=== PATIENT | male | born 1980 | race African-American/Black ===

== ENCOUNTER 2017-10-09 20:43 | Emergency (ER) | payer MEDICAID ==
[~2017-10-09] VITALS: Ht 170.2 cm; Wt 107.5 kg
[~2017-10-09 20:43] MED LIST: BACTRIM DS TAB1 EAC1 ORAL; CEPHALEXIN500 MG ORAL; CEPHALEXIN500 MG PO; KEFLEX500 MG ORAL; NKM
[2017-10-09 21:00] VITALS: BP 146/91
[2017-10-09] MEDS ORDERED: PERMETHRIN60 GM TOPIC (21:12)
[2017-10-09] MEDS ORDERED: IBUPROFEN600 MG ORAL (21:12)
--- NOTE | 2017-10-09 21:13 | Emergency Room Report ---
History of Present Illness General Chief Complaint: General Complaint Source: Patient Present Illness HPI Is a 37-year-old male with no significant past history he presents with to chief complaint. This one is his feet are swollen. Onset for last week. No trauma. No fever or chills. His been on his feet more. Pain is mild. Second complaint is lice. Notice it today was someone was doing his hair. He said he washed it and noticed lice on his towel. Itching. Allergies: Coded Allergies: No Known Allergies (Unverified , 08/11/12) Patient History Past Medical History: see triage record, old chart reviewed Past Surgical History: none Pertinent Family History: none Social History: Denies: smoking Immunizations: other Reviewed Nursing Documentation: PMH: Agreed, PSxH: Agreed Nursing Documentation-PMH Hx Hypertension: Yes Review of Systems Eye: Denies: eye pain, blurred vision ENT: Denies: ear pain, nose congestion, throat swelling Respiratory: Denies: cough, shortness of breath Cardiovascular: Denies: chest pain, palpitations Gastrointestinal: Denies: abdominal pain, diarrhea, nausea, vomiting Musculoskeletal: Denies: back pain, joint pain Skin: Denies: rash Neurological: Denies: headache, numbness Endocrine: Denies: increased thirst, increased urine Hematologic/Lymphatic: Denies: easy bruising All Other Systems: negative except mentioned in HPI Physical Exam Vital Signs Date Time Temp Pulse Resp B/P (MAP) Pulse Ox O2 Delivery O2 Flow Rate FiO2 10/09/17 20:52 98.6 109 16 146/91 96 Room Air vitals with tachycardia Sp02 EP Interpretation: reviewed, normal General Appearance: well appearing, no apparent distress, alert Head: normocephalic, atraumatic, other - Initially, I did not see any lice or nits. Patient put wet towel, I was able to see one. Eyes: bilateral eye PERRL, bilateral eye EOMI ENT: hearing grossly normal, normal pharynx Neck: full range of motion, supple, no meningismus Respiratory: chest non-tender, lungs clear, normal breath sounds Cardiovascular #1: regular rate, rhythm, no murmur Gastrointestinal: normal bowel sounds, non tender, no mass, no organomegaly, no bruit, non-distended Musculoskeletal: back normal, gait/station normal, normal range of motion, other - No obvious edema to his feet. He Flat footed Psychiatric: mood/affect normal Skin: warm/dry Medical Decision Making Diagnostic Impression: Primary Impression: Head lice Additional Impression: Arthralgia of both feet ER Course Patient with lights. We'll prescribe medication. No evidence of infection. We 'll discharge him. Last Vital Signs Date Time Temp Pulse Resp B/P (MAP) Pulse Ox O2 Delivery O2 Flow Rate FiO2 10/09/17 20:52 98.6 109 16 146/91 96 Room Air Status: unchanged Disposition: HOME, SELF-CARE Condition: Stable Scripts Ibuprofen* (MOTRIN*) 600 Mg Tablet 600 MG ORAL THREE TIMES A DAY, #30 TAB 0 Refills Prov: MAXIMO SPENCER M.D. 10/09/17 Permethrin* (ELIMITE*) 60 Gm Cream..g. 1 APPLIC TOPIC ONCE, #120 GM 0 Refills Apply cream from head to toe; leave on for 8-14 hours before washing off with water; may reapply in 1 week if live mites appear. Prov: MAXIMO SPENCER M.D. 10/09/17 Ibuprofen* (MOTRIN*) 600 Mg Tablet 600 MG ORAL THREE TIMES A DAY, #30 TAB 0 Refills Prov: MAXIMO SPENCER M.D. 10/09/17 Additional Instructions: Followup with your DrVance in a week. Treat your hair once and then a week later again. Return if symptom worsen. MAXIMO SPENCER M.D. Oct 09, 2017 21:13
[2017-10-09 21:45] VITALS: BP 146/91
== END 2017-10-09 21:45 | disposition home or self-care (01) ==
LOC: EMR 21:44
DX: B85.0 Pediculosis due to Pediculus humanus capitis (principal); M25.572 Pain in left ankle and joints of left foot; M25.571 Pain in right ankle and joints of right foot; M79.89 Other specified soft tissue disorders; I10 Essential (primary) hypertension
CPT/HCPCS: 99283

== ENCOUNTER 2018-01-14 12:30 | Emergency (ER) | payer MEDICAID ==
[~2018-01-14] VITALS: Ht 170.2 cm; Wt 86.2 kg
[~2018-01-14 12:30] MED LIST changes: +IBUPROFEN600 MG ORAL; +PERMETHRIN60 GM TOPIC
[2018-01-14 13:02] VITALS: BP 133/76
[2018-01-14 13:03] VITALS: BP 133/76
[2018-01-14] MEDS ORDERED: PERMETHRIN60 GM TOPIC (13:07)
[2018-01-14] MEDS ORDERED: DEBROX15 M1 BOTH EARS (13:07)
--- NOTE | 2018-01-14 13:09 | Emergency Room Report ---
History of Present Illness General Chief Complaint: General Complaint Present Illness HPI 37 yo male patient presents to ER complaining of lice for 1 week. Reports hx of lice. Reports previously only treated hair once with medication. Reports itching of scalp. Denies pain, erythema, bald patches. Reports concern lice may have crawled into ear. Denies ear pain or hearing loss. Denies fever, chest pain, SOB, abdominal pain. Allergies: Coded Allergies: No Known Allergies (Unverified , 08/11/12) Patient History Past Medical History: see triage record Reviewed Nursing Documentation: PMH: Agreed; PSxH: Agreed Nursing Documentation-PMH Hx Hypertension: Yes Review of Systems All Other Systems: negative except mentioned in HPI Physical Exam Vital Signs Date Time Temp Pulse Resp B/P (MAP) Pulse Ox O2 Delivery O2 Flow Rate FiO2 01/14/18 12:44 97.7 114 20 133/76 99 Room Air 97.7 Sp02 EP Interpretation: reviewed, normal General Appearance: well appearing, no apparent distress, alert, GCS 15, non- toxic Head: normocephalic, atraumatic, other - nits present in hair, no lice seen Eyes: bilateral eye normal inspection, bilateral eye PERRL ENT: hearing grossly normal, normal pharynx, no angioedema, normal voice, uvula midline, moist mucus membranes, other - excessive cerumen bilaterally, no pain with ear pulling, no erythema in canal Neck: full range of motion Respiratory: lungs clear, normal breath sounds, no rhonchi, no respiratory distress, no accessory muscle use, no wheezing, speaking full sentences Genitourinary: no CVA tenderness Musculoskeletal: back normal, digits/nails normal, gait/station normal, normal range of motion, non-tender Neurologic: alert, oriented x3, responsive, motor strength/tone normal, sensory intact Psychiatric: mood/affect normal Skin: no rash Lymphatic: no adenopathy Medical Decision Making PA Attestation Dr. Whitmore is my supervising Physician whom patient management has been discussed with. Diagnostic Impression: Primary Impression: Lice Additional Impression: Cerumen impaction ER Course Pt. presents to the ED c/o lice. Ddx considered but are not limited to lice, scabies, insect. Vital signs: are WNL, pt. is afebrile. Pulse mildly elevated, will recheck. ORDERS: none required at this time, the diagnosis is clinical ER COURSE: Patient has likely nits in hair. Will treat with Permethrin.Treat today and repeat in 1 week. Clean all possessions, clothes, and bedding. Treat close contacts. No lice seen in ear, excessive cerumen, will provide with Debrox. Followup with PCP. Vitals stable prior to discharge. DISCHARGE: Rx provided for Debrox Rx provided for Permethrin At this time pt is stable for d/c to home. Patient is resting comfortably, in no acute distress, nontoxic appearing, talking without difficulty. Patient to take medications as instructed Will provide with patient care instructions and any necessary prescriptions. Care plan and follow-up instructions provided. Patient instructed to follow-up with primary care provider in 3 - 5 days. Patient questions asked and answered. Patient reports understanding and agreement to treatment plan. ER precautions given. Patient instructed to return to ER immediately for any new or worsening of symptoms including but not limited to increasing SOB, persistent fever. Last Vital Signs Date Time Temp Pulse Resp B/P (MAP) Pulse Ox O2 Delivery O2 Flow Rate FiO2 01/14/18 13:02 97.7 70 20 133/76 99 Room Air 97.7 Disposition: HOME, SELF-CARE Condition: Stable Scripts Permethrin* (ELIMITE*) 60 Gm Cream..g. 1 APPLIC TOPIC ONCE, #60 GM 0 Refills Apply cream from head to toe; leave on for 8-14 hours before washing off with water; may reapply in 1 week if live mites appear. Prov: Rd Willard 01/14/18 Carbamide Peroxide (DEBROX) 15 Ml Drops 5 DROP BOTH EARS TWICE A DAY for 4 Days, ML 0 Refills Prov: Rd Willard 01/14/18 Additional Instructions: Followup with primary care provider in 3 -5 days. Take medications as directed. Patient questions asked and answered. ER precautions given, patient instructed to return to ER immediately for any new or worsening of symptoms. Apply Permethrin cream once today and repeat in 1 week. Clean and wash all clothing and bedding to prevent reinfection. Hair conditioners should not be used prior to application; these products may result in reduced efficacy. Rinsing of topical pediculicides should be performed over a sink rather than in a shower or bath to limit skin exposure. Rinsing with warm water is preferred over hot water. Rd Willard Jan 14, 2018 13:09
== END 2018-01-14 13:30 | disposition home or self-care (01) ==
LOC: EMR 13:10
DX: B85.0 Pediculosis due to Pediculus humanus capitis (principal); H61.23 Impacted cerumen, bilateral; I10 Essential (primary) hypertension
CPT/HCPCS: 99284

== ENCOUNTER 2018-01-20 12:24 | Emergency (ER) | payer MEDICAID ==
[~2018-01-20] VITALS: Ht 170.2 cm; Wt 88.5 kg
[~2018-01-20 12:24] MED LIST changes: +DEBROX15 M1 BOTH EARS
[2018-01-20] MEDS ORDERED: NKM (12:36)
[2018-01-20 12:38] VITALS: BP 146/85
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
[2018-01-20] MEDS ORDERED: LORazepam 1mg tab ORAL ONE (13:45)
--- NOTE | 2018-01-20 14:01 | Diagnostic Imaging Report ---
Indication: Pain Technique: XRAY Ankle 2v R Comparison: No prior right ankle radiographs for comparison. Findings: There is no acute fracture or dislocation. Ankle mortise is intact on these nonstress views. There is a well circumscribed ossific density projecting adjacent to the tip of the medial malleolus which may be sequela of remote trauma or possibly represent a accessory ossicle. Likely small osteochondroma of the distal tibial shaft. No radiopaque foreign body is seen. No ankle joint effusion. Question pes planus. Otherwise, visualized hindfoot grossly unremarkable. IMPRESSION: No definite evidence of acute fracture or dislocation. Additional findings as above.
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
[2018-01-20] MEDS ORDERED: NAPROXEN375 MG ORAL (14:23)
[2018-01-20 15:01] VITALS: BP 140/79
== END 2018-01-20 15:03 | disposition home or self-care (01) ==
LOC: EMR 14:16
DX: M25.572 Pain in left ankle and joints of left foot (principal); M25.571 Pain in right ankle and joints of right foot; I10 Essential (primary) hypertension
CPT/HCPCS: 93005; 99283

== ENCOUNTER 2018-02-11 11:25 | Emergency (ER) | payer MEDICAID ==
[~2018-02-11] VITALS: Ht 175.3 cm; Wt 81.6 kg
[~2018-02-11 11:25] MED LIST changes: +NAPROXEN375 MG ORAL
[2018-02-11 12:10] LABS: BASOPHILS % (AUTO) 1.4 % (0.0-2.0); EOSINOPHILS % (AUTO) 1.1 % (0.0-3.0); HEMATOCRIT 45.9 % (42.0-52.0); HEMOGLOBIN 15.4 G/DL (14.2-18.0); LYMPHOCYTES % (AUTO) 22.5 % (20.0-45.0); MEAN CORPUSCULAR VOLUME 89 FL (80-99); MONOCYTES % (AUTO) 8.5 % (1.0-10.0); NEUTROPHILS % (AUTO) 66.5 % (45.0-75.0); PLATELET COUNT 243 K/UL (150-450); RED BLOOD COUNT 5.14 M/UL (4.70-6.10); RED CELL DISTRIBUTION WIDTH 12.5 % (11.6-14.8); WHITE BLOOD COUNT 6.8 K/UL (4.8-10.8)
[2018-02-11 12:28] LABS: ANION GAP 12 mmol/L (5-15); BLOOD UREA NITROGEN 16 mg/dL (7-18); CALCIUM 9.2 MG/DL (8.5-10.1); CARBON DIOXIDE 23 MMOL/L (21-32); CHLORIDE 102 MMOL/L (98-107); CREATININE 1.2 MG/DL (0.55-1.30); POTASSIUM 4.7 MMOL/L (3.5-5.1); SODIUM 137 MMOL/L (136-145)
[2018-02-11] MEDS ORDERED: Naloxone 1mg/ml 2ml IVP ONE (12:30)
[2018-02-11 12:34] LABS: ALANINE AMINOTRANSFERASE 38 U/L (12-78); ALBUMIN/GLOBULIN RATIO 0.9 (1.0-2.7); ALKALINE PHOSPHATASE 86 U/L (46-116); ASPARTATE AMINO TRANSFERASE 54 U/L (15-37); BILIRUBIN,TOTAL 0.9 MG/DL (0.2-1.0)
[2018-02-11] MEDS ORDERED: Haloperidol 5mg/ml Inj IM ONE ×2 (13:45→20:15)
[2018-02-11] MEDS ORDERED: LORazepam Inj 2mg/ml 1ml IM ONE ×2 (13:45→23:15)
[2018-02-11 14:00] VITALS: BP 144/90
--- NOTE | 2018-02-11 14:48 | Emergency Room Report ---
History of Present Illness General Chief Complaint: Overdose Source: EMS (Derrell Hernandez MD) Present Illness HPI 37-year-old male presents ED for evaluation. Patient brought in by EMS. Patient allegedly overdosed on heroin. Patient is well-known to EMS. Patient had pinpoint pupils with minimal response. Given Narcan multiple doses and is now more awake. However is very lethargic. Patient is unable to provide any additional history at this time. No evidence of head trauma or injury. No other aggravating relieving factors. No other associated symptoms (Derrell Hernandez MD) Allergies: Coded Allergies: No Known Allergies (Unverified , 08/11/12) Patient History Past Medical History: none Past Surgical History: none Pertinent Family History: none Social History: Reports: drug use; Denies: smoking, alcohol use Immunizations: UTD Reviewed Nursing Documentation: PMH: Agreed; PSxH: Agreed (Derrell Hernandez MD) Nursing Documentation-PMH Hx Hypertension: Yes (Derrell Hernandez MD) Review of Systems All Other Systems: limited (Derrell Hernandez MD) Physical Exam Vital Signs Date Time Temp Pulse Resp B/P (MAP) Pulse Ox O2 Delivery O2 Flow Rate FiO2 02/11/18 11:22 97.5 110 12 144/90 98 Room Air 97.5 Sp02 EP Interpretation: reviewed, normal General Appearance: no apparent distress, lethargic Head: normocephalic, atraumatic Eyes: bilateral eye normal inspection, bilateral eye PERRL ENT: hearing grossly normal, normal pharynx, no angioedema, normal voice Neck: full range of motion, supple/symm/no masses Respiratory: chest non-tender, lungs clear, normal breath sounds, speaking full sentences Cardiovascular #1: regular rate, rhythm, no edema Cardiovascular #2: 2+ carotid (R), 2+ carotid (L), 2+ radial (R), 2+ radial (L) , 2+ dorsalis pedis (R), 2+ dorsalis pedis (L) Gastrointestinal: normal bowel sounds, non tender, soft, non-distended, no guarding, no rebound Rectal: deferred Genitourinary: normal inspection, no CVA tenderness Musculoskeletal: back normal, gait/station normal, normal range of motion, non- tender Neurologic: other - lethargic Psychiatric: other - lethargic Reflexes: 3+ bicep (R), 3+ bicep (L), 3+ tricep (R), 3+ tricep (L), 3+ knee (R) , 3+ knee (L) Skin: normal color, no rash, warm/dry, well hydrated Lymphatic: no adenopathy (Derrell Hernandez MD) Medical Decision Making Diagnostic Impression: Primary Impression: Drug overdose Qualified Codes: T50.901A - Poisoning by unspecified drugs, medicaments and biological substances, accidental (unintentional), initial encounter Additional Impression: Amphetamine abuse ER Course Hospital Course 37-year-old male presents to ED with altered mental status. allegedly used heroin at home Clinical course Patient initially seen and evaluated by myself yesterday. Please see initial note for full history and physical Patient required sedation for agitation. I ordered CT head. Labs reviewed-electrolytes okay, no leukocytosis, hemoglobin/hematocrit stable, Utox + amphetamines CT brain shows no acute pathology I signed out to oncoming physician that patient could likely be discharged once awake Patient remains in ED, lethargic. Patient answers questions very slowly. At this point I believe patient should be admitted Because of insurance patient will be transferred i. I feel this is a highly complex case requiring extensive working including EKG/Rhythm strip, Xray/CT/US, Blood/urine lab work, repeat exams while in ED, and administration of strong opiates/narcotics for pain control, admission to hospital or close patient follow up. Diagnosis - drug overdose, amphetamine abuse transferred in serious condition Labs Test 02/11/18 11:45 White Blood Count 6.8 K/UL (4.8-10.8) Red Blood Count 5.14 M/UL (4.70-6.10) Hemoglobin 15.4 G/DL (14.2-18.0) Hematocrit 45.9 % (42.0-52.0) Mean Corpuscular Volume 89 FL (80-99) Mean Corpuscular Hemoglobin 29.9 PG (27.0-31.0) Mean Corpuscular Hemoglobin Concent 33.5 G/DL (32.0-36.0) Red Cell Distribution Width 12.5 % (11.6-14.8) Platelet Count 243 K/UL (150-450) Mean Platelet Volume 6.3 FL (6.5-10.1) Neutrophils (%) (Auto) 66.5 % (45.0-75.0) Lymphocytes (%) (Auto) 22.5 % (20.0-45.0) Monocytes (%) (Auto) 8.5 % (1.0-10.0) Eosinophils (%) (Auto) 1.1 % (0.0-3.0) Basophils (%) (Auto) 1.4 % (0.0-2.0) Sodium Level 137 MMOL/L (136-145) Potassium Level 4.7 MMOL/L (3.5-5.1) Chloride Level 102 MMOL/L (98-107) Carbon Dioxide Level 23 MMOL/L (21-32) Anion Gap 12 mmol/L (5-15) Blood Urea Nitrogen 16 mg/dL (7-18) Creatinine 1.2 MG/DL (0.55-1.30) Estimat Glomerular Filtration Rate > 60 mL/min (>60) Glucose Level 109 MG/DL (74-106) Calcium Level 9.2 MG/DL (8.5-10.1) Total Bilirubin 0.9 MG/DL (0.2-1.0) Aspartate Amino Transf (AST/SGOT) 54 U/L (15-37) Alanine Aminotransferase (ALT/SGPT) 38 U/L (12-78) Alkaline Phosphatase 86 U/L (46-116) Total Protein 8.4 G/DL (6.4-8.2) Albumin 4.0 G/DL (3.4-5.0) Globulin 4.4 g/dL Albumin/Globulin Ratio 0.9 (1.0-2.7) Salicylates Level 0.6 ug/mL (2.8-20) Urine Opiates Screen Negative (NEGATIVE) Acetaminophen Level < 2 MCG/ML (10-30) Urine Barbiturates Screen Negative (NEGATIVE) Phencyclidine (PCP) Screen Negative (NEGATIVE) Urine Amphetamines Screen Positive (NEGATIVE) Urine Benzodiazepines Screen Negative (NEGATIVE) Urine Cocaine Screen Negative (NEGATIVE) Urine Marijuana (THC) Screen Negative (NEGATIVE) Serum Alcohol < 3 mg/dL (Derrell Hernandez MD) ER Course This patient was signed out to me. The patient had presented with drug intoxication. At the time of turnover, he was awaiting laboratory workup and a head CT as a precaution. He complained of fatigue. His urine drug screen was positive for amphetamines. I suspect this patient was up all night and that is why he is fatigued. Laboratory workup was unremarkable for any findings concerning for anemia, electrolyte abnormality or any emergency medical condition. He was given Haldol and Ativan here in the emergency department for agitation. He was allowed to sleep and sober up. He was then discharged when he is clinically sober. He was able to ambulate and was given a local resources for drug rehabilitation. Laboratory Tests Test 02/11/18 11:45 White Blood Count 6.8 K/UL (4.8-10.8) Red Blood Count 5.14 M/UL (4.70-6.10) Hemoglobin 15.4 G/DL (14.2-18.0) Hematocrit 45.9 % (42.0-52.0) Mean Corpuscular Volume 89 FL (80-99) Mean Corpuscular Hemoglobin 29.9 PG (27.0-31.0) Mean Corpuscular Hemoglobin Concent 33.5 G/DL (32.0-36.0) Red Cell Distribution Width 12.5 % (11.6-14.8) Platelet Count 243 K/UL (150-450) Mean Platelet Volume 6.3 FL (6.5-10.1) L Neutrophils (%) (Auto) 66.5 % (45.0-75.0) Lymphocytes (%) (Auto) 22.5 % (20.0-45.0) Monocytes (%) (Auto) 8.5 % (1.0-10.0) Eosinophils (%) (Auto) 1.1 % (0.0-3.0) Basophils (%) (Auto) 1.4 % (0.0-2.0) Sodium Level 137 MMOL/L (136-145) Potassium Level 4.7 MMOL/L (3.5-5.1) Chloride Level 102 MMOL/L (98-107) Carbon Dioxide Level 23 MMOL/L (21-32) Anion Gap 12 mmol/L (5-15) Blood Urea Nitrogen 16 mg/dL (7-18) Creatinine 1.2 MG/DL (0.55-1.30) Estimate Glomerular Filtration Rate > 60 mL/min (>60) Glucose Level 109 MG/DL (74-106) H Calcium Level 9.2 MG/DL (8.5-10.1) Total Bilirubin 0.9 MG/DL (0.2-1.0) Aspartate Amino Transferase (AST) 54 U/L (15-37) H Alanine Aminotransferase (ALT) 38 U/L (12-78) Alkaline Phosphatase 86 U/L (46-116) Total Protein 8.4 G/DL (6.4-8.2) H Albumin 4.0 G/DL (3.4-5.0) Globulin 4.4 g/dL Albumin/Globulin Ratio 0.9 (1.0-2.7) L Salicylates Level 0.6 ug/mL (2.8-20) L Urine Opiates Screen Negative (NEGATIVE) Acetaminophen Level < 2 MCG/ML (10-30) L Urine Barbiturates Screen Negative (NEGATIVE) Phencyclidine (PCP) Screen Negative (NEGATIVE) Urine Amphetamines Screen Positive (NEGATIVE) H Urine Benzodiazepines Screen Negative (NEGATIVE) Urine Cocaine Screen Negative (NEGATIVE) Urine Marijuana (THC) Screen Negative (NEGATIVE) Serum Alcohol < 3 mg/dL (CONTRERAS STAFFORD D.O.) ER Course Patient was endorsed to me. The patient was pending CT of the head. Patient was noted to be somewhat agitated initially and subsequently became more sedated after receiving Ativan. CT the head was performed with large amount of motion artifact. The patient is currently pending reassessment after the medications wear off.The patient was endorsed to Dr. Hough the pending reevaluation. (Kota Hutchinson) ER Course Please see above notes. Patient sleeping. More arousable but still somnolent. Continued observation. (Jimmie Hough M.D.) CT/MRI/US Diagnostic Results CT/MRI/US Diagnostic Results : Imaging Test Ordered: CT Head Impression no acute process (Derrell Hernandez MD) CT/MRI/US Diagnostic Results : Imaging Test Ordered: CT head Impression No acute findings. See official report (CONTRERAS STAFFORD D.O.) Last Vital Signs Date Time Temp Pulse Resp B/P (MAP) Pulse Ox O2 Delivery O2 Flow Rate FiO2 02/11/18 11:22 97.5 110 12 144/90 98 Room Air 97.5 Status: improved (Derrell Hernandez MD) Disposition: XFER SHT-TRM HOSP Condition: Serious Referrals: NON PHYSICIAN (PCP) Derrell Hernandez MD Feb 11, 2018 14:48 CONTRERAS STAFFORD D.O. Feb 11, 2018 15:31 Kota Hutchinson Feb 12, 2018 06:34 Jimmie Hough M.D. Feb 12, 2018 13:37
[2018-02-11 16:52] VITALS: BP 142/87
[2018-02-11 19:30] VITALS: BP 135/81
[2018-02-11 22:00] VITALS: BP 132/84
[2018-02-12] VITALS (10 sets, daily range): BP systolic 101–136; BP diastolic 61–85
--- NOTE | 2018-02-12 10:09 | Diagnostic Imaging Report ---
Indication: Altered mental status Technique: Contiguous 5 mm thick transaxial imaging of the head obtained in a Siemens Sensation [address] scanner. Soft tissue and bone windows generated. Automatic Exposure Control was utilized. Total Dose length Product (DLP): 2420.[address] Dose Index Volume (CTDIvol): 70.38,70.38 mGy Comparison: none Findings: Study is significantly degraded, almost nondiagnostic due to motion. Portions of the brain are not visualized adequately and not adequately evaluated. That said the visualized part of the brain seen shows no obvious mass effect or acute hemorrhage or edema. IMPRESSION: Severely limited study due to motion. Recommend repeating the exam. [facility] has communicated the preliminary results to the Emergency Department. Their findings are largely concordant with this report. The CT scanner at [facility] is accredited by the [employer] and the scans are performed using dose optimization techniques as appropriate to a performed exam including Automatic Exposure control.
== END 2018-02-12 20:10 | disposition short-term general hospital (02) ==
LOC: EDBD 11:25 → EMR 12:17
DX: T40.1X1A Poisoning by heroin, accidental (unintentional), initial encounter (principal); Y92.9 Unspecified place or not applicable; F15.10 Other stimulant abuse, uncomplicated; I10 Essential (primary) hypertension; R41.82 Altered mental status, unspecified
CPT/HCPCS: 36415; 36600; 70450; 80053; 80307; 80329; 82803; 85025; 96361; 96372; 96374; 96375; 99285; J1630; J2310

== ENCOUNTER 2018-02-26 23:08 | Emergency (ER) | payer MEDICAID ==
[~2018-02-26] VITALS: Ht 170.2 cm; Wt 98.0 kg
[2018-02-26 23:30] VITALS: BP 124/76
[2018-02-27] MEDS ORDERED: AMOXICILLIN500 MG ORAL (00:51)
[2018-02-27] MEDS ORDERED: PSEUDOEPHEDRINE60 MG PO (00:51)
--- NOTE | 2018-02-27 00:51 | Emergency Room Report ---
History of Present Illness General Chief Complaint: Earache Source: Patient Present Illness HPI Patient with no significant past medical history. He presents chief complaint of bilateral ear pain. Right greater than left. His been ongoing for over a month. Now he can't hear especially in the right side. No nausea no vomiting. No trauma. Allergies: Coded Allergies: No Known Allergies (Unverified , 08/11/12) Patient History Past Medical History: see triage record, old chart reviewed Past Surgical History: none Pertinent Family History: none Social History: Denies: smoking Immunizations: other Reviewed Nursing Documentation: PMH: Agreed; PSxH: Agreed Nursing Documentation-PMH Hx Hypertension: Yes Review of Systems Eye: Denies: eye pain, blurred vision ENT: Reports: ear pain; Denies: nose congestion, throat swelling Respiratory: Denies: cough, shortness of breath Cardiovascular: Denies: chest pain, palpitations Gastrointestinal: Denies: abdominal pain, diarrhea, nausea, vomiting Musculoskeletal: Denies: back pain, joint pain Skin: Denies: rash Neurological: Denies: headache, numbness Endocrine: Denies: increased thirst, increased urine Hematologic/Lymphatic: Denies: easy bruising All Other Systems: negative except mentioned in HPI Physical Exam Vital Signs Date Time Temp Pulse Resp B/P (MAP) Pulse Ox O2 Delivery O2 Flow Rate FiO2 02/26/18 23:12 97.7 100 16 124/76 96 Room Air 97.7 vitals normal Sp02 EP Interpretation: reviewed, normal General Appearance: well appearing, no apparent distress, alert Head: normocephalic, atraumatic Eyes: bilateral eye PERRL, bilateral eye EOMI ENT: hearing grossly normal, normal pharynx, other - Bilateral canal obstructed with cerumen. After disimpaction, left TM is normal. Right TM show air-fluid levels and erythema. Neck: full range of motion, supple, no meningismus Respiratory: chest non-tender, lungs clear, normal breath sounds Cardiovascular #1: regular rate, rhythm, no murmur Gastrointestinal: normal bowel sounds, non tender, no mass, no organomegaly, no bruit, non-distended Musculoskeletal: back normal, gait/station normal, normal range of motion Psychiatric: mood/affect normal Skin: warm/dry Procedures Additional Procedure Procedure Narrative Procedure: Cerumen disimpaction Indication: Cerumen impaction Description: I irrigated both ear canal and using an alligator forceps able removed the cerumen without any difficulty. Patient tolerated procedure without a problem. No complication. Medical Decision Making Diagnostic Impression: Primary Impression: Impacted cerumen of both ears Additional Impression: Right otitis media with effusion ER Course Patient with cerumen impaction. No evidence of perforation. Also has some otitis media. We'll discharge home. Last Vital Signs Date Time Temp Pulse Resp B/P (MAP) Pulse Ox O2 Delivery O2 Flow Rate FiO2 02/26/18 23:30 97.7 100 16 124/76 96 Room Air 97.7 Status: improved Disposition: HOME, SELF-CARE Condition: Stable Scripts Pseudoephedrine Hcl* (SUDAFED*) 60 Mg Tablet 60 MG PO Q6H, #20 TAB Prov: MAXIMO SPENCER M.D. 02/27/18 Amoxicillin* (AMOXIL*) 500 Mg Capsule 500 MG ORAL THREE TIMES A DAY, #21 CAP Prov: MAXIMO SPENCER M.D. 02/27/18 Referrals: NON PHYSICIAN (PCP) Patient Instructions: Otitis Media, Adult, [id number] Additional Instructions: Follow-up with your doctor in 7 days. Return if worse. MAXIMO SPENCER M.D. February 27, 2018 00:51
[2018-02-27 00:56] VITALS: BP 124/76
== END 2018-02-27 00:56 | disposition home or self-care (01) ==
LOC: EMR 23:45
DX: H61.23 Impacted cerumen, bilateral (principal); H65.91 Unspecified nonsuppurative otitis media, right ear
CPT/HCPCS: 69210; 99284

== ENCOUNTER 2018-09-06 17:50 | Emergency (ER) | payer MEDICAID ==
[~2018-09-06] VITALS: Ht 175.3 cm; Wt 98.9 kg
[~2018-09-06 17:50] MED LIST changes: +AMOXICILLIN500 MG ORAL; +PSEUDOEPHEDRINE60 MG PO
[2018-09-06] MEDS ORDERED: NKM (18:00)
--- NOTE | 2018-09-06 18:03 | Emergency Room Report ---
History of Present Illness General Chief Complaint: Lower Back Pain or Injury Source: Patient, Medical Record Present Illness HPI 38-year-old male presents to the emergency department complaining of low back pain that radiates across his low back times one week. Patient reports worsening of his symptoms. Patient denies trauma or fall. Patient denies hematuria, urinary urgency or frequency. Patient denies fevers or chills. He reports some intermittent left foot pain as well. Patient again denies trauma or fall. Patient states pain is exacerbated upon attempts to bend forward. Denies history of recent spinal procedures or neoplastic disease. Patient does report hx of illicit drug use however states he has not had any recently. pt. reports that he was seen by his pcp recently and had some blood in the urine then and was dx'd with UTI and rx'd Sulfa abx. pt. states he did not fill his rx nor taken any abx for his symptoms. Denies numbness tingling or loss of sensation or gross motor movements of the extremities, incontinence of bowel or bladder. Denies CP, Palpitations, LOC, AMS, dizziness, Changes in Vision, weakness or a sudden severe headache. Allergies: Coded Allergies: No Known Allergies (Unverified , 09/06/18) Patient History Past Medical History: see triage record Past Surgical History: none Pertinent Family History: none Social History: Reports: drug use - hx of heroin and meth use. Immunizations: UTD Reviewed Nursing Documentation: PMH: Agreed; PSxH: Agreed Nursing Documentation-PMH Past Medical History: No History, Except For Hx Hypertension: Yes Review of Systems All Other Systems: negative except mentioned in HPI Physical Exam Vital Signs Date Time Temp Pulse Resp B/P (MAP) Pulse Ox O2 Delivery O2 Flow Rate FiO2 09/06/18 17:54 98.8 122 16 148/90 96 Room Air Sp02 EP Interpretation: reviewed, normal General Appearance: no apparent distress, alert, GCS 15, non-toxic Head: normocephalic, atraumatic Eyes: bilateral eye normal inspection, bilateral eye PERRL ENT: hearing grossly normal, normal voice Neck: full range of motion Respiratory: chest non-tender, lungs clear, normal breath sounds, speaking full sentences Cardiovascular #1: regular rate, rhythm, no edema, tachycardia Gastrointestinal: normal bowel sounds, non tender, soft Rectal: deferred Genitourinary: normal inspection Musculoskeletal: back normal, gait/station normal, normal range of motion, tender - TTP to bilateral paraspinal muscules in the lumbar spinal area. no midline spinous process tenderness. Pain with forward flexion. no saddle anesthesias. Neurologic: alert, oriented x3, responsive, motor strength/tone normal, sensory intact, speech normal, grossly normal Psychiatric: judgement/insight normal Skin: normal color, no rash, warm/dry, well hydrated Medical Decision Making PA Attestation Dr. cuellar is my supervising Physician whom patient management has been discussed with. Diagnostic Impression: Primary Impression: Low back pain Qualified Codes: M54.5 - Low back pain Additional Impression: UTI (urinary tract infection) Qualified Codes: N30.01 - Acute cystitis with hematuria ER Course 38-year-old male presents to the emergency department complaining of low back pain that radiates across his low back times one week. Patient reports worsening of his symptoms. Patient denies trauma or fall. Patient denies hematuria, urinary urgency or frequency. Patient denies fevers or chills. He reports some intermittent left foot pain as well. Patient again denies trauma or fall. Patient states pain is exacerbated upon attempts to bend forward. Denies history of recent spinal procedures or neoplastic disease. Patient does report hx of illicit drug use however states he has not had any recently. pt. reports that he was seen by his pcp recently and had some blood in the urine then and was dx'd with UTI and rx'd Sulfa abx. pt. states he did not fill his rx nor taken any abx for his symptoms. Denies numbness tingling or loss of sensation or gross motor movements of the extremities, incontinence of bowel or bladder. Denies CP, Palpitations, LOC, AMS, dizziness, Changes in Vision, weakness or a sudden severe headache. Ddx considered but are not limited to Muscle strain/sprain/spasm, epidural abscess, kidney stone, pyelonephritis, UTI, obstruction. Vital signs: HR is tachycardic otherwise vs are WNL, pt. is afebrile H&PE are most consistent with muscle strain will r/o for possible UTI/ renal calculi. Pt. NAD and non-toxic in appearance. ORDERS: - UA: few bacteria, mucus noted, mild elevation in wbc's will treat as mild UTI , pending cultures as needed. ED INTERVENTIONS: -- Lidoderm --Robaxin PO -I do not identify an emergent condition at this time. With current presentation , pt. is stable for close outpatient follow up and conservative treatment. D/ w pt. to return promptly to ED with worsening or new symptoms.- Pt. verbalizes' understanding and agreement with proposed treatment plan. DISCHARGE: At this time pt. is stable for d/c to home. Will provide printed patient care instructions, and any necessary prescriptions. Care plan and follow up instructions have been discussed with the patient prior to discharge. Labs Test 09/06/18 18:08 Urine Color Brown Urine Appearance Clear Urine pH 6 (4.5-8.0) Urine Specific [place] 1.025 (1.005-1.035) Urine Protein 2+ (NEGATIVE) Urine Glucose (UA) Negative (NEGATIVE) Urine Ketones 1+ (NEGATIVE) Urine Blood Negative (NEGATIVE) Urine Nitrite Negative (NEGATIVE) Urine Bilirubin 1+ (NEGATIVE) Urine Ictotest Negative (NEGATIVE) Urine Urobilinogen 1 MG/DL (0.0-1.0) Urine Leukocyte Esterase 1+ (NEGATIVE) Urine RBC 0 /HPF (0 - 0) Urine WBC 0-2 /HPF (0 - 0) Urine Squamous Epithelial Cells None /LPF (NONE/OCC) Urine Bacteria Few /HPF (NONE) Urine Hyaline Casts 0-2 /LPF (NONE) Urine Mucus Moderate /LPF (NONE/OCC) Last Vital Signs Date Time Temp Pulse Resp B/P (MAP) Pulse Ox O2 Delivery O2 Flow Rate FiO2 09/06/18 17:54 98.8 122 16 148/90 96 Room Air Disposition: HOME, SELF-CARE Condition: Stable Scripts Methocarbamol* (ROBAXIN-750*) 750 Mg Tablet 750 MG PO TID for 5 Days, #15 TAB 0 Refills Prov: Olga Atkinson 09/06/18 Cephalexin* (KEFLEX*) 500 Mg Capsule 500 MG ORAL EVERY 12 HOURS for 7 Days, #14 CAP 0 Refills Prov: Olga Atkinson 09/06/18 Patient Instructions: Back Pain, Adult, Urinary Tract Infection, [id number] Additional Instructions: Take medications as directed. Follow up with a Primary Care Provider in 3-5 days, even if your symptoms have resolved. --Please review list of primary care clinics, if you do not already have a primary care provider Return sooner to ED if new symptoms occur, or current symptoms become worse. Do not drink alcohol, drive, or operate heavy machinery while taking Robaxin ( Muscle Relaxers) as this may cause drowsiness. - Please note that this Emergency Department Report was dictated using [employer] engineer technology software, occasionally this can lead to erroneous entry secondary to interpretation by the dictation equipment. Olga Atkinson Sep 06, 2018 18:03
[2018-09-06 18:13] VITALS: BP 148/90
[2018-09-06 18:29] LABS: APPEARANCE,URINE CLEAR; BILIRUBIN, URINE 1+ (NEGATIVE); COLOR,URINE BROWN; GLUCOSE, URINE (UA) NEGATIVE (NEGATIVE); KETONES,URINE 1+ (NEGATIVE); LEUKOCYTE ESTERASE ,URINE 1+ (NEGATIVE); NITRITE,URINE NEGATIVE (NEGATIVE); PH,URINE 6 (4.5-8.0); PROTEIN,URINE 2+ (NEGATIVE); UROBILINOGEN,URINE 1 MG/DL (0.0-1.0)
[2018-09-06] MEDS ORDERED: Methocarbamol 500mg tab ORAL ONE (19:00)
[2018-09-06] MEDS ORDERED: CEPHALEXIN500 MG ORAL (19:06)
[2018-09-06] MEDS ORDERED: ROBAXIN-750750 MG PO (19:06)
[2018-09-06 19:17] VITALS: BP 130/80
== END 2018-09-06 19:13 | disposition home or self-care (01) ==
LOC: EMR 18:19
DX: M54.5 Low back pain (principal); N39.0 Urinary tract infection, site not specified; I10 Essential (primary) hypertension
CPT/HCPCS: 81003; 99283

== ENCOUNTER 2018-12-05 23:23 | Emergency (ER) | payer MEDICAID ==
[~2018-12-05] VITALS: Ht 180.3 cm; Wt 90.7 kg
[~2018-12-05 23:23] MED LIST changes: +ROBAXIN-750750 MG PO
[2018-12-05] MEDS ORDERED: NKM (23:32)
[2018-12-05 23:40] VITALS: BP 148/90
--- NOTE | 2018-12-05 23:40 | NUR ---
ED Nurse Note: pt walked in c/o right earache and left leg pain for couple of days. Pt denies discharge in ear, denies injury for legs, pt states it hurts when he walks a lot but started hurting when he woke up today. pt AA&ox4, gcs=15, skin warm and dry, resp even and unlabored on RA, CMS intact BLE, VSS will cont monitor.
[2018-12-06] MEDS ORDERED: IBUPROFEN600 MG ORAL (00:37)
[2018-12-06] MEDS ORDERED: AMOXICILLIN500 MG ORAL (00:37)
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
[2018-12-06 00:41] VITALS: BP 144/86
--- NOTE | 2018-12-06 00:42 | NUR ---
ER DISCHARGE NOTE: Patient is cleared to be discharged per ERMD, pt is aox4, on room air, with stable vital signs. pt was given dc and prescription instructions, pt was able to verbalize understanding, pt id band without complications. pt is able to ambulate with steady gait. pt took all belongings.
== END 2018-12-06 00:47 | disposition home or self-care (01) ==
LOC: EMR 23:48
DX: H61.23 Impacted cerumen, bilateral (principal); H66.91 Otitis media, unspecified, right ear; M79.672 Pain in left foot; I10 Essential (primary) hypertension; J45.909 Unspecified asthma, uncomplicated
CPT/HCPCS: 69209; 99282; Z7502

== ENCOUNTER 2019-02-19 01:37 | Emergency (ER) | payer MEDICAID ==
[~2019-02-19] VITALS: Ht 33 cm; Wt 0.5 kg
--- NOTE | 2019-02-19 01:48 | NUR ---
CALLED PATIENT; NOT IN WAITING ROOM.
--- NOTE | 2019-02-19 02:02 | NUR ---
ED Nurse Note: PT LEFT WITHOUT BEING SEEN.
--- NOTE | 2019-02-19 04:23 | Emergency Room Report ---
History of Present Illness General Chief Complaint: General Complaint Source: Patient Present Illness Allergies: Coded Allergies: No Known Allergies (Unverified , 12/05/18) Nursing Documentation-H Past Medical History: Deferred Hx Hypertension: Yes Hx Asthma: Yes Medical Decision Making Diagnostic Impression: Primary Impression: Patient left without being seen ER Course Patient left without being seen Status: unchanged Disposition: LEFT W/OUT BEING SEEN Condition: Unknown Referrals: ANYA PINON,REFERRING (PCP) Derrell Hernandez MD February 19, 2019 04:23
== END 2019-02-19 02:02 | disposition left against medical advice (07) ==
LOC: EMR 02:00
DX: R07.9 Chest pain, unspecified (principal); Z53.21 Procedure and treatment not carried out due to patient leaving prior to being seen by health care provider; I10 Essential (primary) hypertension

== ENCOUNTER 2019-06-25 21:18 | Emergency (ER) | payer MEDICAID ==
[~2019-06-25] VITALS: Ht 188 cm; Wt 106.6 kg
[2019-06-25 21:39] VITALS: BP 119/82
--- NOTE | 2019-06-25 21:41 | NUR ---
ER Nurse Note: Pt walked in c/o pain in both ears since 2 wks. Pt states he has better hearing on the LT ear over RT. Pt states unk cause, denies being exposed to loud noises, denies trauma, no recent travels. No drainage, no fever. Will continue to motnior.
--- NOTE | 2019-06-25 22:13 | Emergency Room Report ---
History of Present Illness General Chief Complaint: Earache Source: Patient Present Illness HPI Is a 39-year-old male with a history of hypertension. He presents with chief complaint of left ear pain. He said he can hear out of that ear. Onset for about a week and a half. Pain is mild. Nothing made it better. Nothing made it worse. Said he does not use Q-tips. No nausea no vomiting. No upper respiratory infection. Allergies: Coded Allergies: No Known Allergies (Unverified , 12/05/18) Patient History Past Medical History: see triage record, old chart reviewed, HTN, asthma Past Surgical History: none Pertinent Family History: none Social History: Denies: smoking Immunizations: other Reviewed Nursing Documentation: PMH: Agreed; PSxH: Agreed Nursing Documentation-PMH Hx Hypertension: Yes Hx Asthma: Yes Review of Systems Eye: Denies: eye pain, blurred vision ENT: Reports: ear pain; Denies: nose congestion, throat swelling Respiratory: Denies: cough, shortness of breath Cardiovascular: Denies: chest pain, palpitations Gastrointestinal: Denies: abdominal pain, diarrhea, nausea, vomiting Musculoskeletal: Denies: back pain, joint pain Skin: Denies: rash Neurological: Denies: headache, numbness Endocrine: Denies: increased thirst, increased urine Hematologic/Lymphatic: Denies: easy bruising All Other Systems: negative except mentioned in HPI Physical Exam Vital Signs Date Time Temp Pulse Resp B/P (MAP) Pulse Ox O2 Delivery O2 Flow Rate FiO2 06/25/19 21:22 98.1 76 16 119/82 (94) 99 Room Air Vitals normal Sp02 EP Interpretation: reviewed, normal General Appearance: well appearing, no apparent distress, alert Head: normocephalic, atraumatic Eyes: bilateral eye PERRL, bilateral eye EOMI ENT: hearing grossly normal, normal pharynx, other - Bilateral ear canal obstructed by cerumen Neck: full range of motion, supple, no meningismus Respiratory: chest non-tender, lungs clear, normal breath sounds Cardiovascular #1: regular rate, rhythm, no murmur Gastrointestinal: normal bowel sounds, non tender, no mass, no organomegaly, no bruit, non-distended Musculoskeletal: back normal, gait/station normal, normal range of motion Psychiatric: mood/affect normal Procedures Additional Procedure Procedure Narrative Procedure: Cerumen disimpaction Indication: Cerumen impaction Description: I irrigate both canal with normal saline using an 18-gauge angiocatheter. Large hard cerumen removed from both ear canals. Patient felt better. No trauma. Patient tolerated procedure without any problem. Medical Decision Making Diagnostic Impression: Primary Impression: Impacted cerumen of both ears ER Course Patient presents with impacted cerumen. No evidence of perforated eardrum or infection. Will discharge home. Last Vital Signs Date Time Temp Pulse Resp B/P (MAP) Pulse Ox O2 Delivery O2 Flow Rate FiO2 06/25/19 21:39 98.1 76 16 119/82 99 Room Air Status: improved Disposition: HOME, SELF-CARE Condition: Stable Additional Instructions: Follow-up with your doctor in 7 days. Return if worse. Guy Samayoa MD Jun 25, 2019 22:13
--- NOTE | 2019-06-25 22:16 | NUR ---
ER DISCHARGE NOTE: Patient is cleared to be discharged per ERMD, pt is aox4, on room air, with stable vital signs. pt was given dc instructions, pt was able to verbalize understanding, pt id band removed without complications. pt is able to ambulate with steady gait. pt took all belongings.
[2019-06-25 22:19] VITALS: BP 119/82
== END 2019-06-25 22:00 | disposition home or self-care (01) ==
LOC: EMR 21:38
DX: H61.23 Impacted cerumen, bilateral (principal); I10 Essential (primary) hypertension; J45.909 Unspecified asthma, uncomplicated
CPT/HCPCS: 69209; Z7502; 99282

== ENCOUNTER 2020-05-25 12:59 | Emergency (ER) | payer MEDICAID ==
[~2020-05-25] VITALS: Ht 180.3 cm; Wt 90.7 kg
[2020-05-25 13:04] VITALS: BP 126/69
--- NOTE | 2020-05-25 13:10 | NUR ---
ED Nurse Note: patient walked into ED from home c/o bilatera ear clogged and concerned that he is having a hearing loss, reports minimal pain, 2/10, no drainage or irritation. patient is alert awake x4 ambulatory breathing unlabored and even, speaking in full sentences.
--- NOTE | 2020-05-25 13:37 | NUR ---
PT DECLINED HAVING HIS WOUNDS IRRIGATED, DECLINED BACITRACIN AND DRESSINGS, BEGAN PACING AROUND THE HALLWAY VERBALIZING EXPLETIVES
--- NOTE | 2020-05-25 13:58 | Emergency Room Report ---
History of Present Illness General Chief Complaint: Earache Source: Patient Present Illness HPI 40-year-old male presents to the emergency department complaining of difficulty with hearing and suspected increase in earwax. Patient reports he has symptoms bilaterally. He reports 2 out of 10 severity fullness sensation in the ears bilaterally. He reports muffled hearing equal bilaterally. Patient denies fevers or chills. He does report Q-tip use. Patient reports having history of impacted cerumen and states that he has been using the prescribed eardrops as directed however he is not having any improvement. He denies discharge or blood from the ears. He denies nasal congestion or allergies. He denies tinnitus or vertigo. Patient is requesting ear irrigation. He states he has not followed up with the ENT specialist because he does not have a primary care provider which is why he often comes to the ER for ear irrigation. Denies external ear tenderness, headache or visual changes. 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 Patient History Past Medical History: see triage record Past Surgical History: none Pertinent Family History: none Reviewed Nursing Documentation: PMH: Agreed; PSxH: Agreed Nursing Documentation-PMH Past Medical History: No History, Except For Hx Hypertension: Yes Hx Asthma: Yes Review of Systems All Other Systems: negative except mentioned in HPI Physical Exam Vital Signs Date Time Temp Pulse Resp B/P (MAP) Pulse Ox O2 Delivery O2 Flow Rate FiO2 05/25/20 13:04 98.1 107 18 126/69 (88) 96 Room Air Sp02 EP Interpretation: reviewed, normal General Appearance: no apparent distress, alert, GCS 15, non-toxic Head: normocephalic, atraumatic Eyes: bilateral eye normal inspection, bilateral eye PERRL ENT: hearing grossly normal, normal pharynx, normal voice, uvula midline, other - Impacted cerumen to both ear canals bilaterally Neck: full range of motion, no meningismus, no bony tend Respiratory: lungs clear, normal breath sounds, speaking full sentences Cardiovascular #1: regular rate, rhythm Musculoskeletal: normal range of motion, gait/station normal, non-tender Neurologic: alert, motor strength/tone normal, oriented x3, sensory intact, responsive, speech normal Psychiatric: judgement/insight normal, other - Mood: agitated, Pt. gets agitated with all the ROS and HPI questions. Skin: no rash, normal color, other - no evidence of mastoiditis Lymphatic: no adenopathy Medical Decision Making PA Attestation Dr. Nicholas Is my supervising Physician whom patient management has been discussed with. Diagnostic Impression: Primary Impression: Impacted cerumen of both ears ER Course 40-year-old male presents to the emergency department complaining of difficulty with hearing and suspected increase in earwax. Patient reports he has symptoms bilaterally. He reports 2 out of 10 severity fullness sensation in the ears bilaterally. He reports muffled hearing equal bilaterally. Patient denies fevers or chills. He does report Q-tip use. Patient reports having history of impacted cerumen and states that he has been using the prescribed eardrops as directed however he is not having any improvement. He denies discharge or blood from the ears. He denies nasal congestion or allergies. He denies tinnitus or vertigo. Patient is requesting ear irrigation. He states he has not followed up with the ENT specialist because he does not have a primary care provider which is why he often comes to the ER for ear irrigation. Denies external ear tenderness, headache or visual changes. Ddx considered but are not limited to OM, OE, mastoiditis, TM perforation, FB Vital signs: are WNL, pt. is afebrile. H&PE are most consistent with impacted cerumen of both ear canals ORDERS: none required at this time, the diagnosis is clinical -OTOSCOPY: Impacted cerumen to both ear canals bilaterally. - Cerumen Removal: verbal consent was obtained by pt. after discussing side effects of irrigation. Bilateral ear irrigation was performed by lead manufacturing technician. Pt. tolerated well, there were no complications some improvement bilaterally however moderate cerumen remains. D/w pt. that he will need to see ENT for thorough cerumen removal and canal cleaning as this is an outpatient and non- emergent procedure. ED INTERVENTIONS: None required at this time. DISCHARGE: At this time pt. is stable for d/c to home. With rx for Debrox. Will provide printed patient care instructions, and any necessary prescriptions. Care plan and follow up instructions have been discussed with the patient prior to discharge. Pt. left without receiving or signing his discharge paperwork. Last Vital Signs Date Time Temp Pulse Resp B/P (MAP) Pulse Ox O2 Delivery O2 Flow Rate FiO2 05/25/20 13:04 98.1 107 18 126/69 (88) 96 Room Air Disposition: HOME, SELF-CARE Condition: Stable Scripts Carbamide Peroxide/Nacl/Nahco3 (CLEARCANAL EAR WAX COMPLETE) 192 Ml Combo..pkg 1 APPLIC OT NEEDED, #1 PACK Prov: Olga Atkinson 05/25/20 Referrals: NON PHYSICIAN (PCP) [facility]. [facility] + [facility] Patient Instructions: Cerumen Impaction Additional Instructions: ~ ~ An emergent medical condition has not been identified based on this patients presentation, exam and any necessary testing/imaging. The patient is determined to be stable for outpatient follow-up and management of symptoms by a primary care provider. Take medications as directed. Ears, Nose, Throat Specialist Evaluation needed Follow up with a Primary Care Provider in 3-5 days, FOR ENT Specialist Referral --Please review list of primary care clinics, if you do not already have a primary care provider Return sooner to ED if new symptoms occur, or current symptoms become worse. - Please note that this Emergency Department Report was dictated using [employer] risk management analyst technology software, occasionally this can lead to erroneous entry secondary to interpretation by the dictation equipment. Olga Atkinson May 25, 2020 13:58
[2020-05-25] MEDS ORDERED: [UNRECOGNIZED DRUG - OTHER] OT (14:28)
--- NOTE | 2020-05-25 14:30 | NUR ---
ELOPEMENT: RN went into the room to give discharge paper, however, patient left without getting discharge paper and discharge instructions. patient a/o x4 ambulatory breathing unlabored and even. unable to take discharge vital signs because patient left without further assessment.
--- NOTE | 2020-05-25 14:32 | NUR ---
ED Nurse Note: Olga TOVAR notified and made aware that patient left without discharge paper and instructions.
== END 2020-05-25 14:30 | disposition home or self-care (01) ==
LOC: EMR 13:37
DX: H61.23 Impacted cerumen, bilateral (principal); I10 Essential (primary) hypertension
CPT/HCPCS: 99282